=== PATIENT | male | born 1990 | race Two or more races ===

== ENCOUNTER 2023-11-22 07:20 | Emergency (ER) | payer MEDICAID, OTHER ==
[2023-11-22 07:53] VITALS: BP 148/97; PULSE 76; RESP 18; TEMP 98.3; O2SAT 95
[2023-11-22] MEDS ORDERED: AUG875T PO (08:22)
[2023-11-22] MEDS ORDERED: PROM1SOL4 PO (08:22)
[2023-11-22] MEDS ORDERED: BENZ100C97 PO (08:22)
== END 2023-11-22 08:22 | disposition home or self-care (01) ==
LOC: ER 07:20
DX: B34.9 Viral infection, unspecified (principal)